=== PATIENT | female | born 1985 | race Caucasian/White ===

== ENCOUNTER 2017-07-02 18:43 | Emergency (ER) | payer OTHER ==
[~2017-07-02] VITALS: Ht 162.6 cm; Wt 81.7 kg
[2017-07-02 19:45] VITALS: BP 120/78
== END 2017-07-02 19:45 | disposition home or self-care (01) ==
LOC: ER 18:43
DX: J30.9 Allergic rhinitis, unspecified (principal); J06.9 Acute upper respiratory infection, unspecified

== ENCOUNTER → 2020-07-12 | Emergency (ER) | payer OTHER ==
[~2020-07-12] VITALS: Ht 162.6 cm; Wt 108.9 kg
[~2020-07-12] MED LIST: CLEOCIN HCL150 MG PO
[2020-07-12 18:13] VITALS: BP 148/86
== END ==
LOC: ER 18:06
DX: K04.7 Periapical abscess without sinus (principal); K08.89 Other specified disorders of teeth and supporting structures; Z88.1 Allergy status to other antibiotic agents; Z88.5 Allergy status to narcotic agent; Z88.2 Allergy status to sulfonamides